=== PATIENT | female | born 1960 | race Caucasian/White ===

== ENCOUNTER 2020-05-18 07:51 | Emergency (ER) | payer MEDICARE, OTHER, SELFPAY ==
--- NOTE | ~2020-05-18 | XR_ITS ---
XR ankle LT min 3V DATE: 05/18/2020 08:39 INDICATION: Fall. Anterior and lateral pain. TECHNIQUE: 4 views COMPARISON: None FINDINGS: No fracture or dislocation of the ankle or disruption of the ankle mortise is detected. IMPRESSION: No fracture or dislocation Reviewed, dictated and finalized at location A. GRATION ARCHITECT IMPRESSION: No fracture or dislocation
--- NOTE | ~2020-05-18 | CT_ITS ---
EXAMINATION: CT brain wo con DATE: 05/18/2020 08:25 INDICATION: Fall. Patient struck forehead. TECHNIQUE: Computed tomography (CT) of the head was performed without intravenous contrast. The mA wa s adjusted according to patient size. Iterative reconstruction technique was employed. Exam dose: 60 5.33 mGy-cm total exam DLP. COMPARISON: 05/11/2016 CT brain FINDINGS: Chronic large left cerebellar hemispheric infarct. Bilateral carotid siphon internal carotid artery calcifications. No intracranial mass lesion or hemorrhage, midline shift or mass effect. No subdural or epidural terry joseph. No skull fracture or bone destruction. IMPRESSION: Chronic left cerebellar infarct Cerebral atherosclerosis No acute intracranial finding or skull fracture Reviewed, dictated and finalized at Location [facility]. Reviewed, dictated and finalized at location A. OLOGY AIDE
[2020-05-18 07:50] VITALS: BP 133/73; PULSE 54; RESP 20; TEMP 36.6; O2SAT 98
--- NOTE | 2020-05-18 08:35 | ED.LOWEXIN ---
HPI - Extremity Injury (Lower) General Chief Complaint: Extremity Injury, Lower Stated Complaint: ankle injury Time Seen by Provider: 05/18/20 07:51 History of Present Illness HPI Narrative: Patient is a 5-year-old female who presents to the ER with left ankle pain. Patient reports that her foot was numb when she got out of bed. When she tried to walk she lost her balance and twisted her ankle. She then fell and struck her head against wall. Unsure if she lost consciousness. She had pain/swelling of the ankle and pain and could not bear weight. She took one of her home Butler's prior to coming to the ER by EMS. EMS is splinted the affected extremity. No numbness or tingling. Patient takes Plavix. Related Data Home Medications Medication Instructions Recorded Confirmed albuterol sulfate 90 mcg/actuation See Rx Instructions .ROUTE .COMPLEX 09/02/19 12/17/19 aerosol inhaler alprazolam 2 mg tablet 2 mg PO TID 09/02/19 12/17/19 clopidogrel 75 mg tablet 75 mg PO DAILY 09/02/19 12/17/19 fluoxetine 20 mg capsule 20 mg PO DAILY 09/02/19 12/17/19 fluticasone propionate 50 2 spray NASAL DAILY 09/02/19 12/17/19 mcg/actuation nasal spray,suspension omeprazole 40 mg capsule,delayed 40 mg PO DAILY 09/02/19 12/17/19 release oxycodone-acetaminophen 10 mg-325 1 tablet PO Q6H PRN 09/02/19 12/17/19 mg tablet budesonide-formoterol HFA 160 2 puff INHALATION Q12H 12/14/19 12/17/19 mcg-4.5 mcg/actuation aerosol inhaler Allergies Allergy/AdvReac Type Severity Reaction Status Date / Time Penicillins Allergy Severe Anaphylactic Verified 08/02/19 13:21 Shock strawberry Allergy Severe Anaphylactic Verified 08/02/19 13:21 Shock Sulfa (Sulfonamide Allergy Severe Anaphylactic Verified 08/02/19 13:21 Antibiotics) Shock Cephalosporins Allergy Mild Vomiting Verified 08/02/19 13:21 nitrofurantoin Allergy Mild Hives Verified 05/18/20 07:58 povidone Allergy Mild SWELLING Verified 08/02/19 13:21 Iodinated Contrast Media Allergy Unknown Anaphylaxis Verified 05/18/20 07:58 povidone-iodine Allergy Unknown Anaphylaxis Verified 05/18/20 07:58 shellfish derived Allergy Unknown Anaphylaxis Verified 05/18/20 07:58 sulfanilamide Allergy Unknown Anaphylactic Verified 05/18/20 07:58 Shock Contrast Media Allergy Severe Anaphylactic Uncoded 08/02/19 13:21 Shock Cat Dander Allergy Mild Wheezing Uncoded 08/02/19 13:21 Dust Allergy Mild Wheezing Uncoded 08/02/19 13:21 Grass Allergy Mild Wheezing Uncoded 08/02/19 13:21 Molds and Smuts Allergy Mild Wheezing Uncoded 08/02/19 13:21 NITROFURANTOIN MACROCRYSTAL Allergy Mild Unknown Uncoded 05/18/20 07:58 Mushroom Allergy Unknown Unknown Uncoded 05/18/20 07:58 PHENYLOPROPONALMINE Allergy Unknown Unknown Uncoded 05/18/20 07:58 SHELLFISH Allergy Unknown Unknown Uncoded 05/18/20 07:58 SOAP Allergy Unknown Unknown Uncoded 05/18/20 07:58 Review of Systems Review of Systems: All systems reviewed & are unremarkable except as noted in HPI and below Constitutional: Constitutional: Denies chills, Denies fever(s) and Denies weakness Musculoskeletal: Musculoskeletal: Reports arthralgias and Reports joint swelling Neurologic: Denies headache(s), Denies focal weakness and Denies numbness PMFSH Past Medical History Medical History (Updated 05/18/20 @ 10:47 by Noble Roberts MD) CVA (cerebral vascular accident) Diabetes type 2, controlled Hyperlipidemia, unspecified Peripheral polyneuropathy Family History Family History Sibling Family history of thyroid disease Family history of diabetes mellitus in first degree relative Father Carcinoma of colon Social History Social History Smoking status: Never smoker Alcohol intake: never Exam Narrative: Exam Narrative: GENERAL: Well-appearing, obese, and in no acute distress. HEAD: Normocephalic, atraumatic. EYES: PERR
== END 2020-05-18 11:03 | disposition home or self-care (01) ==
PROVIDERS: Emergency Provider Emergency Medicine
DX: S93.402A Sprain of unspecified ligament of left ankle, initial encounter (principal); Z86.73 Personal history of transient ischemic attack (TIA), and cerebral infarction without residual deficits; E78.5 Hyperlipidemia, unspecified; E11.42 Type 2 diabetes mellitus with diabetic polyneuropathy; I67.2 Cerebral atherosclerosis; W18.39XA Other fall on same level, initial encounter; X50.1XXA Overexertion from prolonged static or awkward postures, initial encounter
CPT/HCPCS: 70450; 73610; 99284

== ENCOUNTER 2020-10-05 11:24 | Emergency (ER) | payer MEDICARE, OTHER, MEDICAID, SELFPAY ==
[2020-10-05] VITALS (7 sets, daily range): BP systolic 98–118; BP diastolic 62–86; PULSE 51–62; RESP 8–19; TEMP 36.7; O2SAT 94–99
--- NOTE | ~2020-10-05 | XR_ITS ---
EXAMINATION: XR chest 2V EXAM DATE: 10/05/2020 12:39 INDICATION: Cough, chest pain. TECHNIQUE: Frontal and lateral projections of the chest obtained and reviewed. Comparison is made to prior examination from 09/11/2017. FINDINGS: There is an oval density projecting over the mid spine on the lateral projection, most like ly a left laterally based endplate osteophyte. This finding has been indicated. No acute airspace dis ease. There are no pleural effusions. The cardiomediastinal silhouette is within normal limits. The re is no pneumothorax suspected. The bones and soft tissues are unremarkable. IMPRESSION: No acute cardiopulmonary findings. Oval density probably an osteophyte. Reviewed, dictated and finalized at location A. IMPRESSION: No acute cardiopulmonary findings. Oval density probably an osteoph yte.
--- NOTE | ~2020-10-05 | NM_ITS ---
EXAMINATION: NM pulmonary perfusion EXAM DATE: 10/05/2020 15:05 INDICATION: Chest pain, cough. History of both pulmonary embolism and contrast allergy. TECHNIQUE: A perfusion lung scan was performed. The patient was injected with 5.5 mCi technetium 99m MAA and imaged. Modified PIOPED 2 criteria used for interpretation of perfusion without ventilation study (recent chest x-ray instead for comparison). There is no prior study for comparison. FINDINGS: There is homogeneous tracer activity, perfusion to both lungs. Corresponding chest x-ray is normal. IMPRESSION: Normal perfusion scan. Reviewed, dictated and finalized at location A. IMPRESSION: Normal perfusion scan.
--- NOTE | 2020-10-05 11:29 | ECG_ITS ---
Measurements Intervals [place] Rate: 58 P: 41 RI: 128 QRS: 14 QRSD: 102 T: 22 QT: 401 QTc: 395 Interpretive Statements SINUS BRADYCARDIA BASELINE ARTIFACT- I, II, III, AVR, AVL,A VF, V1-V6 BORDERLINE ECG Electronically Signed On 10-05-2020 12:47:28 CDT by Chalo Hernandez D.O.
[2020-10-05 12:27] LABS: Basophils Absolute Auto 0.1 K/mm3 (0.0-0.1); Basophils Percent Auto 0.9 % (0.2-1.2); Eosinophils Absolute Auto 0.2 K/mm3 (0-0.3); Eosinophils Percent Auto 2.2 % (0-4.4); Hematocrit 39.7 % (37.0-47.0); Hemoglobin 12.8 g/dL (12.0-15.0); Immature Granulocyte Absolute 0.02 K/mm3 (0.00-0.031); Immature Granulocyte Percent A 0.3 % (0-0.5); Lymphocytes Absolute Auto 3.98 K/mm3 (0.9-3.2); Lymphocytes Percent Auto 51.1 % (18.3-44.2); Mean Corpuscular HGB Conc 32.2 g/dl (32-36); Mean Corpuscular Hemoglobin 28.3 pg (26-34); Mean Corpuscular Volume 87.8 fl (80-100); Mean Platelet Volume 11.7 fl (7.4-10.4); Monocytes Absolute Auto 0.5 K/mm3 (0.1-0.6); Monocytes Percent Auto 6.3 % (2.6-8.5); Neutrophils Absolute Auto 3.1 K/mm3 (1.3-6.7); Neutrophils Percent Auto 39.2 % (45.5-73.1); Platelet Count Result 224 k/mm3 (150-375); Red Blood Count 4.52 M/mm3 (4.2-5.4); Red Cell Distribution Width 12.8 % (11.5-14.5); White Blood Count 7.8 K/mm3 (4.5-10.0)
[2020-10-05 12:33] LABS: Anion Gap 4 mmol/L (8-16); Blood Urea Nitrogen 17 mg/dL (7-17); Calcium 8.4 mg/dL (8.4-10.2); Carbon Dioxide 30 mmol/L (22-30); Chloride 104 mmol/L (98-107); Estimated CRCL calculation 53 ml/min; Estimated Glomerular Filt Rate > 60; Glucose 111 mg/dL (65-105); Potassium 3.6 mmol/L (3.4-5.0); Sodium 138 mmol/L (137-145)
[2020-10-05 12:39] LABS: INR 0.9; Prothrombin Time 12.3 Seconds (11.1-14.7)
[2020-10-05 12:40] LABS: Partial Thromboplastin Time 26.3 SECONDS (22.3-36.8)
[2020-10-05 12:45] LABS: Troponin I < 0.012 ng/mL (0.000-0.034)
[2020-10-05] MEDS: ASPIRIN 81 MG CHEWABLE TABLET 324 MG PO (12:58)
--- NOTE | 2020-10-05 13:14 | ED.GENADULT ---
HPI - General Adult General Chief complaint: Chest Pain Stated complaint: headache, chest pain Time Seen by Provider: 10/05/20 12:16 Source: patient Mode of arrival: ambulatory Limitations: no limitations History of Present Illness HPI narrative: 59-year-old female Patient has a history of a cough and a frontal headache for the last 2 to 3 weeks and some CP when she moves around or breathes deeply Cough is nonproductive, she does not have a fever, and she had a negative rapid and a negative send out Covid test done this week elsewhere 2 days ago she started Flonase and doxycycline after an urgent care visit Patient says that today the urgent care called her back and said she should go to the ER to be checked due to reported problems with the [employer] Covid vaccination Patient received her vaccination August 28 Onset (ago): day(s) Related Data Home Medications Medication Instructions Recorded Confirmed budesonide-formoterol INHALATION 10/05/20 10/05/20 cholecalciferol (vitamin D3) 10/05/20 clopidogrel 10/05/20 doxycycline hyclate 10/05/20 epinephrine 10/05/20 fluoxetine mg 10/05/20 fluticasone propionate INTRANASAL 10/05/20 pregabalin 10/05/20 Allergies Allergy/AdvReac Type Severity Reaction Status Date / Time Penicillins Allergy Severe Anaphylactic Verified 10/05/20 12:27 Shock strawberry Allergy Severe Anaphylactic Verified 10/05/20 12:27 Shock Sulfa (Sulfonamide Allergy Severe Anaphylactic Verified 10/05/20 12:27 Antibiotics) Shock Cephalosporins Allergy Mild Vomiting Verified 10/05/20 12:27 nitrofurantoin Allergy Mild Hives Verified 10/05/20 12:27 povidone Allergy Mild SWELLING Verified 10/05/20 12:27 Iodinated Contrast Media Allergy Unknown Anaphylaxis Verified 10/05/20 12:27 povidone-iodine Allergy Unknown Anaphylaxis Verified 10/05/20 12:27 shellfish derived Allergy Unknown Anaphylaxis Verified 10/05/20 12:27 sulfamethoxazole Allergy Unknown hives Verified 10/05/20 12:27 [From ] sulfanilamide Allergy Unknown Anaphylactic Verified 10/05/20 12:27 Shock trimethoprim [From ] Allergy Unknown hives Verified 10/05/20 12:27 Contrast Media Allergy Severe Anaphylactic Uncoded 10/05/20 12:27 Shock Cat Dander Allergy Mild Wheezing Uncoded 10/05/20 12:27 Dust Allergy Mild Wheezing Uncoded 10/05/20 12:27 Grass Allergy Mild Wheezing Uncoded 10/05/20 12:27 Molds and Smuts Allergy Mild Wheezing Uncoded 10/05/20 12:27 NITROFURANTOIN MACROCRYSTAL Allergy Mild Unknown Uncoded 10/05/20 12:27 Mushroom Allergy Unknown Unknown Uncoded 10/05/20 12:27 PHENYLOPROPONALMINE Allergy Unknown Unknown Uncoded 10/05/20 12:27 SHELLFISH Allergy Unknown Unknown Uncoded 10/05/20 12:27 SOAP Allergy Unknown Unknown Uncoded 10/05/20 12:27 Review of Systems Review of Systems: All systems reviewed & are unremarkable except as noted in HPI and below Constitutional: Constitutional: Reports no additional constitutional complaints, Denies chills, Denies fever(s) and Denies headache(s) Eyes: Eyes: Reports no additional eye complaints and Denies change in vision ENT: Denies headache(s), Reports nasal congestion and Denies sore throat Comments: Sinus pain Cardiovascular: Cardiovascular: Reports chest pain and Denies dyspnea Respiratory: Respiratory: Reports cough, Denies dyspnea and Denies wheezing Gastrointestinal: Gastrointestinal: Denies diarrhea and Denies vomiting Genitourinary: Genitourinary: Denies urinary frequency and Denies dysuria Musculoskeletal: Musculoskeletal: Denies deformity, Denies arthralgias, Denies joint swelling and Denies numbness Integumentary/Breasts: Skin/Breast: Denies rash and Denies wounds Neurologic: Reports headache(s), Denies focal weakness and Denies numbness Psychiatric: Psychiatric: Reports no additional psychiatric complaints Endocrine: Endocrine: Reports no additional endocrine complaints Hematologic/Lymphatic: Hematologic/Lymphatic: Reports no add
[2020-10-05 13:18] LABS: D Dimer 1.18 ug/mL (<0.48)
[2020-10-05 15:45] LABS: Troponin I < 0.012 ng/mL (0.000-0.034)
== END 2020-10-05 16:42 | disposition home or self-care (01) ==
PROVIDERS: General Practice; Emergency Provider Emergency Medicine; PCP Internal Medicine
DX: J06.9 Acute upper respiratory infection, unspecified (principal); R07.89 Other chest pain; J45.909 Unspecified asthma, uncomplicated; E11.42 Type 2 diabetes mellitus with diabetic polyneuropathy; M79.7 Fibromyalgia; K21.9 Gastro-esophageal reflux disease without esophagitis; M19.90 Unspecified osteoarthritis, unspecified site; Z86.718 Personal history of other venous thrombosis and embolism; Z86.711 Personal history of pulmonary embolism; G47.30 Sleep apnea, unspecified; K58.9 Irritable bowel syndrome, unspecified; M81.0 Age-related osteoporosis without current pathological fracture; Z87.440 Personal history of urinary (tract) infections; Z86.73 Personal history of transient ischemic attack (TIA), and cerebral infarction without residual deficits; R00.1 Bradycardia, unspecified
CPT/HCPCS: 36415; 71046; 78580; 80048; 84484; 85025; 85380; 85610; 85730; 93005; 99284; A9270; A9540

== ENCOUNTER 2021-04-21 15:42 | Emergency (ER) | payer MEDICARE, OTHER, MEDICAID, SELFPAY ==
[2021-04-21 16:04] VITALS: BP 104/58; PULSE 71; RESP 18; TEMP 37.1; O2SAT 98
--- NOTE | 2021-04-21 16:52 | ED.FEMALEGU ---
HPI - Female Genitourinary General Chief complaint: Urogenital-Female Stated complaint: UTI Time Seen by Provider: 04/21/21 16:38 Source: patient and RN notes reviewed Mode of arrival: ambulatory Limitations: no limitations History of Present Illness HPI Narrative: Patient presents today complaining of headache, lower abdominal cramping, dysuria, hematuria, nausea, chills. Symptoms began 1 week ago. patient has history of frequent UTIs, neurogenic bladder. She has tried no [id number] treatment prior to arrival. She has multiple antibiotic allergies and has had to have PICC line antibiotics in the past. MD elicited complaint: dysuria Related Data Home Medications Medication Instructions Recorded Confirmed budesonide-formoterol INHALATION 10/05/20 12/27/20 cholecalciferol (vitamin D3) 10/05/20 clopidogrel 10/05/20 12/27/20 epinephrine 10/05/20 fluoxetine mg 10/05/20 fluticasone propionate INTRANASAL 10/05/20 pregabalin 10/05/20 fluoxetine 20 mg capsule 20 mg PO DAILY 12/27/20 12/27/20 omeprazole 40 mg capsule,delayed 40 mg PO DAILY 12/27/20 12/27/20 release oxycodone-acetaminophen 10 mg-325 1 tablet PO Q6H PRN 12/27/20 12/27/20 mg tablet pregabalin 100 mg capsule 100 mg PO TID 12/27/20 12/27/20 Allergies Allergy/AdvReac Type Severity Reaction Status Date / Time Penicillins Allergy Severe Anaphylactic Verified 12/27/20 14:49 Shock strawberry Allergy Severe Anaphylactic Verified 12/27/20 14:49 Shock Sulfa (Sulfonamide Allergy Severe Anaphylactic Verified 12/27/20 14:49 Antibiotics) Shock Cephalosporins Allergy Mild Vomiting Verified 12/27/20 14:49 nitrofurantoin Allergy Mild Hives Verified 12/27/20 14:49 povidone Allergy Mild SWELLING Verified 12/27/20 14:49 Iodinated Contrast Media Allergy Unknown Anaphylaxis Verified 12/27/20 14:49 povidone-iodine Allergy Unknown Anaphylaxis Verified 12/27/20 14:49 shellfish derived Allergy Unknown Anaphylaxis Verified 12/27/20 14:49 sulfamethoxazole Allergy Unknown hives Verified 12/27/20 14:49 [From ] sulfanilamide Allergy Unknown Anaphylactic Verified 12/27/20 14:49 Shock trimethoprim [From ] Allergy Unknown hives Verified 12/27/20 14:49 Contrast Media Allergy Severe Anaphylactic Uncoded 12/27/20 14:49 Shock Cat Dander Allergy Mild Wheezing Uncoded 12/27/20 14:49 Dust Allergy Mild Wheezing Uncoded 12/27/20 14:49 Grass Allergy Mild Wheezing Uncoded 12/27/20 14:49 Molds and Smuts Allergy Mild Wheezing Uncoded 12/27/20 14:49 NITROFURANTOIN MACROCRYSTAL Allergy Mild Unknown Uncoded 12/27/20 14:49 Mushroom Allergy Unknown Unknown Uncoded 12/27/20 14:49 PHENYLOPROPONALMINE Allergy Unknown Unknown Uncoded 12/27/20 14:49 SHELLFISH Allergy Unknown Unknown Uncoded 12/27/20 14:49 SOAP Allergy Unknown Unknown Uncoded 12/27/20 14:49 Review of Systems Review of Systems: CONSTITUTIONAL: Denies body aches, fever, or sweats.+ Chills EYES: Denies visual changes, redness, or discharge. ENT: Denies rhinorrhea, congestion, sore throat, or otalgia. CARDIOVASCULAR: Denies chest pain, palpitations, or edema. RESPIRATORY: Denies cough or dyspnea. GASTROINTESTINAL: Denies abdominal pain, vomiting, or diarrhea.+ Lower abdominal cramping, nausea GENITOURINARY: + Dysuria, hematuria. SKIN: Denies rash, itching, or wounds. MUSCULOSKELETAL: Denies back pain, joint pain, or myalgia. NEUROLOGIC: Denies numbness, tingling, or weakness.+ Headache PSYCH: Denies depression or anxiety. [facility] Past Medical History Medical History (Updated 04/21/21 @ 17:03 by Gwen Ortiz, [facility], ) Ankle sprain Arthritis Asthma Claustrophobia Constipation Coughing CVA (cerebral vascular accident) Depression Diabetes type 2, controlled Eczema Fibromyalgia GERD (gastroesophageal reflux disease) History of DVT (deep vein thrombosis) History of pulmonary embolism History of sleep apnea Hyperlipidemia, unspecified IBS (irritable bowel syndrome) Left ankle pain L
== END 2021-04-21 17:50 | disposition home or self-care (01) ==
PROVIDERS: Emergency Provider Nurse Practitioner
DX: N39.0 Urinary tract infection, site not specified (principal); M19.90 Unspecified osteoarthritis, unspecified site; J45.909 Unspecified asthma, uncomplicated; F40.240 Claustrophobia; Z86.73 Personal history of transient ischemic attack (TIA), and cerebral infarction without residual deficits; F32.A Depression, unspecified; M79.7 Fibromyalgia; K21.9 Gastro-esophageal reflux disease without esophagitis; Z86.718 Personal history of other venous thrombosis and embolism; Z86.711 Personal history of pulmonary embolism; G47.30 Sleep apnea, unspecified; M81.0 Age-related osteoporosis without current pathological fracture; E11.42 Type 2 diabetes mellitus with diabetic polyneuropathy
CPT/HCPCS: 81003; 87077; 87086; 87186; 99213; G0463

== ENCOUNTER 2022-01-27 08:00 | Emergency (ER) | payer MEDICARE, OTHER, MEDICAID, SELFPAY ==
[2022-01-27] VITALS (14 sets, daily range): BP systolic 93–117; BP diastolic 52–91; PULSE 53–66; RESP 9–21; TEMP 36.2; O2SAT 100
--- NOTE | ~2022-01-27 | XR_ITS ---
XR chest 2V DATE: 01/27/2022 08:33 INDICATION: Weakness TECHNIQUE: AP and lateral views COMPARISON: 10/05/2020 PA and lateral views FINDINGS: Heart size is within normal limits. No pulmonary infiltrate or consolidation, pleural effus ion or pulmonary vascular congestion or pneumothorax. Status post lower anterior cervical spine surgical fusion. Osteopenia. IMPRESSION: No active cardiopulmonary disease Reviewed, dictated and finalized at location A.
--- NOTE | 2022-01-27 08:08 | ECG_ITS ---
Measurements Intervals [place] Rate: 51 P: 55 WA: 145 QRS: 27 QRSD: 93 T: 42 QT: 382 QTc: 355 Interpretive Statements SINUS BRADYCARDIA OTHERWISE WITHIN NORMAL LIMITS COMPARED TO ECG 10/05/2020 11:49:36 NO SIGNIFICANT CHANGES Electronically Signed On 01-27-2022 8:28:06 CDT by Joselito Khan M.D.
[2022-01-27 08:47] LABS: Basophils Percent Auto 0.7 % (0.2-1.2); Eosinophils Absolute Auto 0.1 K/mm3 (0-0.3); Eosinophils Percent Auto 1.9 % (0-4.4); Hematocrit 37.1 % (37.0-47.0); Hemoglobin 11.1 g/dL (12.0-15.0); Immature Granulocyte Absolute 0.02 K/mm3 (0.00-0.031); Immature Granulocyte Percent A 0.3 % (0-0.5); Immature Platelet Fraction Pct 9.8 % (0.9-11.2); Lymphocytes Absolute Auto 1.79 K/mm3 (0.9-3.2); Lymphocytes Percent Auto 30.7 % (18.3-44.2); Mean Corpuscular HGB Conc 29.9 g/dl (32-36); Mean Corpuscular Hemoglobin 27.6 pg (26-34); Mean Corpuscular Volume 92.3 fl (80-100); Mean Platelet Volume 11.8 fl (7.4-10.4); Monocytes Absolute Auto 0.5 K/mm3 (0.1-0.6); Monocytes Percent Auto 7.7 % (2.6-8.5); Neutrophils Absolute Auto 3.4 K/mm3 (1.3-6.7); Neutrophils Percent Auto 58.7 % (45.5-73.1); Platelet Count Result 205 k/mm3 (150-375); Red Blood Count 4.02 M/mm3 (4.2-5.4); Red Cell Distribution Width 13.2 % (11.5-14.5); White Blood Count 5.8 K/mm3 (4.5-10.0)
[2022-01-27 09:03] LABS: Alanine Aminotransferase 19 U/L (6-35); Albumin Level 3.9 g/dL (3.5-5.1); Alkaline Phosphatase 70 U/L (38-126); Anion Gap 7 mmol/L (8-16); Aspartate Amino Transferase 26 U/L (14-36); Bilirubin,Total 0.4 mg/dL (0.2-1.3); Blood Urea Nitrogen 12 mg/dL (7-17); Calcium 8.9 mg/dL (8.4-10.2); Carbon Dioxide 29 mmol/L (22-30); Chloride 106 mmol/L (98-107); Estimated CRCL calculation 52 ml/min; Estimated Glomerular Filt Rate 56; Glucose 101 mg/dL (65-110); Potassium 4.2 mmol/L (3.4-5.0); Sodium 142 mmol/L (137-145)
[2022-01-27 09:13] LABS: Appearance Urine Clear (Clear); Bilirubin Urine Negative (Negative); Blood Urine Negative (Negative); Color Urine Yellow (Yellow); Glucose Urine UA Negative (Negative); Ketones Urine Negative (Negative); Leukocyte Esterase Ur Negative LEU/UL (Negative); Nitrate Urine Negative (Negative); Protein Urine Negative (Negative); Specific Grav Ur 1.015 (1.001-1.035); Urobilinogen Urine 0.2 mg/dL (<2.0); pH Urine 7.5 (5.0-9.0)
[2022-01-27 09:18] LABS: Add Urine Microscopic? NO
[2022-01-27 09:21] LABS: Ovalocytes 1+ (NORMAL); Platelet Estimate Adequate (Adequate)
--- NOTE | 2022-01-27 10:08 | ED.GENADULT ---
HPI - General Adult General Chief complaint: Weakness Stated complaint: weakness Time Seen by Provider: 01/27/22 08:17 Source: patient and EMS Mode of arrival: EMS Limitations: no limitations History of Present Illness HPI narrative: 61 years old white female came to the emergency room by ambulance from home because of general weakness. Patient is a status post cervical fusion surgery at [facility], got discharged 2 days ago. 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 Patient lives with 2 handicapped sister. She denies any fever, chills, nausea, vomiting, chest pain, shortness of breath, headache, back pain or neck pain. Related Data Home Medications Medication Instructions Recorded Confirmed budesonide-formoterol HFA 160 inhalation 10/05/20 12/17/21 mcg-4.5 mcg/actuation aerosol inhaler cholecalciferol (vitamin D3) 1,250 10/05/20 12/17/21 mcg (50,000 unit) capsule clopidogrel 75 mg tablet 10/05/20 12/17/21 epinephrine 0.3 mg/0.3 mL 10/05/20 12/17/21 injection, auto-injector fluoxetine 20 mg capsule (Prozac) 20 mg PO DAILY 12/27/20 12/17/21 omeprazole 40 mg capsule,delayed 40 mg PO DAILY 12/27/20 12/17/21 release oxycodone-acetaminophen 10 mg-325 1 tablet PO Q6H PRN Pain 12/27/20 12/17/21 mg tablet (Percocet) pregabalin 100 mg capsule (Lyrica) 100 mg PO TID 12/27/20 12/17/21 Migraine medication PO 12/17/21 12/17/21 alprazolam 2 mg tablet (Xanax) 1 mg PO QHS 12/17/21 12/17/21 fluticasone propionate 50 intranasal PRN 12/17/21 12/17/21 mcg/actuation nasal spray,suspension cholecalciferol (vitamin D3) 1,250 50,000 [id number] 01/27/22 mcg (50,000 unit) capsule oxybutynin chloride 5 mg tablet 5 mg DAILY 01/27/22 Allergies Allergy/AdvReac Type Severity Reaction Status Date / Time Penicillins Allergy Severe Anaphylactic Verified 01/27/22 08:08 Shock strawberry Allergy Severe Anaphylactic Verified 01/27/22 08:08 Shock Sulfa (Sulfonamide Allergy Severe Anaphylactic Verified 01/27/22 08:08 Antibiotics) Shock Cephalosporins Allergy Mild Vomiting Verified 01/27/22 08:08 nitrofurantoin Allergy Mild Hives Verified 01/27/22 08:08 povidone Allergy Mild SWELLING Verified 01/27/22 08:08 Iodinated Contrast Media Allergy Unknown Anaphylaxis Verified 01/27/22 08:08 povidone-iodine Allergy Unknown Anaphylaxis Verified 01/27/22 08:08 shellfish derived Allergy Unknown Anaphylaxis Verified 01/27/22 08:08 sulfamethoxazole Allergy Unknown hives Verified 01/27/22 08:08 [From Septra] sulfanilamide Allergy Unknown Anaphylactic Verified 01/27/22 08:08 Shock sumatriptan [From Imitrex] Allergy Unknown Gastrointestinal Verified 01/27/22 08:08 Upset trimethoprim [From Septra] Allergy Unknown hives Verified 01/27/22 08:08 Contrast Media Allergy Severe Anaphylactic Uncoded 01/27/22 08:08 Shock Cat Dander Allergy Mild Wheezing Uncoded 01/27/22 08:08 Dust Allergy Mild Wheezing Uncoded 01/27/22 08:08 Grass Allergy Mild Wheezing Uncoded 01/27/22 08:08 Molds and Smuts Allergy Mild Wheezing Uncoded 01/27/22 08:08 NITROFURANTOIN MACROCRYSTAL Allergy Mild Unknown Uncoded 01/27/22 08:08 Mushroom Allergy Unknown Unknown Uncoded 01/27/22 08:08 PHENYLOPROPONALMINE Allergy Unknown Unknown Uncoded 01/27/22 08:08 SHELLFISH Allergy Unknown Unknown Uncoded 01/27/22 08:08 SOAP Allergy Unknown Unknown Uncoded 01/27/22 08:08 Review of Systems Review of Systems: All systems reviewed & are unremarkable except as noted in HPI and below PMFSH Past Medical History Medical History Ankle sprain Anxiety Arthritis Asthma BPPV (benign paroxysmal positional vertigo) Bulging disc cervical spine, ruptured and collapsed Claustrophobia Constipation CVA (cerebral vascular accident) Depression Eczema Fibromyalgia GERD (gastroesophageal reflux
== END 2022-01-27 12:19 | disposition short-term general hospital (02) ==
PROVIDERS: Emergency Provider Emergency Medicine
DX: R53.1 Weakness (principal); R26.2 Difficulty in walking, not elsewhere classified; Z98.1 Arthrodesis status; E11.42 Type 2 diabetes mellitus with diabetic polyneuropathy; F32.A Depression, unspecified; M19.90 Unspecified osteoarthritis, unspecified site; M79.7 Fibromyalgia; K21.9 Gastro-esophageal reflux disease without esophagitis; N31.9 Neuromuscular dysfunction of bladder, unspecified; K58.9 Irritable bowel syndrome, unspecified; J45.909 Unspecified asthma, uncomplicated; M81.0 Age-related osteoporosis without current pathological fracture; G47.30 Sleep apnea, unspecified; F41.9 Anxiety disorder, unspecified; Z86.73 Personal history of transient ischemic attack (TIA), and cerebral infarction without residual deficits; Z86.718 Personal history of other venous thrombosis and embolism; Z86.711 Personal history of pulmonary embolism; Z90.710 Acquired absence of both cervix and uterus; R00.1 Bradycardia, unspecified
CPT/HCPCS: 36415; 51701; 71046; 80053; 81003; 85025; 85055; 93005; 99285

== ENCOUNTER 2022-02-10 16:15 | Emergency (ER) | payer MEDICARE, OTHER, MEDICAID, SELFPAY ==
[2022-02-10] VITALS (10 sets, daily range): BP systolic 115–140; BP diastolic 63–71; PULSE 65; RESP 16; TEMP 36.4; O2SAT 97–100
--- NOTE | ~2022-02-10 | XR_ITS ---
EXAM: XR elbow RT min 3V DATE: 02/10/2022 17:36 HISTORY: elbow injury s/p fall, PAIN WITH ROTATION . COMPARISON: None available. FINDINGS: Decreased mineralization. No fracture or dislocation. No lytic or blastic lesion. Joint sp aces are maintained. No erosion or periosteal change. Soft tissues within normal limits. IMPRESSION: No acute osseous finding in the right elbow. Reviewed, dictated and finalized at location K.
--- NOTE | ~2022-02-10 | XR_ITS ---
EXAM: XR shoulder RT min 2V DATE: 02/10/2022 17:36 HISTORY: shoulder pain s/p fall injury, PAIN WITH ROTATION . COMPARISON: 04/22/2014. FINDINGS: Decreased mineralization. No fracture or dislocation. No lytic or blastic lesion. Moderate AC joint hypertrophy. Superior humeral head migration as can be seen with rotator cuff pathology. Mi ld glenohumeral osteoarthritis. Lower cervical fusion hardware. No erosion or periosteal change. Soft tissues within normal limits. IMPRESSION: No acute osseous finding in the right shoulder. Reviewed, dictated and finalized at location K.
--- NOTE | ~2022-02-10 | CT_ITS ---
EXAMINATION: CT cervical spine wo con DATE: 02/10/2022 16:47 INDICATION: fall on plavix TECHNIQUE: Computed tomography (CT) of the cervical spine was performed without intravenous contrast. Automated exposure control and iterative reconstruction technique were employed. The dose-length pro duct was 395.36 mGy-cm. COMPARISON: None FINDINGS: Vertebral Body Alignment: Intact. Craniocervical and atlantoaxial alignment: Mild degenerative change. Alignment intact. Osseous structures/fracture: No evidence of a lytic or blastic process in the visualized spine. No e vidence of acute fracture. ACDF at C6-7, with uncomplicated appearing hardware and stable interbody b one plug. Cervical soft tissues: The paraspinal soft tissues planes are maintained. Degenerative changes: Severe bilateral neural foraminal narrowing at C5-6. Posterior osteophytes at C 6-7 cause moderate-severe central canal stenosis. IMPRESSION: No acute fracture or traumatic malalignment in the cervical spine. Reviewed, dictated and finalized at location K.
--- NOTE | ~2022-02-10 | XR_ITS ---
EXAM: XR wrist RT min 3V DATE: 02/10/2022 17:37 HISTORY: wrist pain s/p fall, PAIN WITH ROTATION . COMPARISON: None available. FINDINGS: Decreased mineralization. No fracture or dislocation. No lytic or blastic lesion. Mild sca ttered degenerative change. No erosion or periosteal change. Soft tissues within normal limits. IMPRESSION: No acute osseous finding in the right wrist. Reviewed, dictated and finalized at location K.
--- NOTE | ~2022-02-10 | XR_ITS ---
EXAMINATION: XR chest 2V Exam Date/Time: 02/10/2022 17:25 CDT HISTORY: weakness, multiple falls, HX CVA Comparison: 01/27/2022. RESULT: Lines, tubes, and devices: Partially visualized lower cervical fusion hardware. Lungs and pleura: Clear. Cardiomediastinal silhouette: Stable. Other: No acute osseous or upper abdominal finding. IMPRESSION: No acute cardiopulmonary process. Reviewed, dictated and finalized at location K.
--- NOTE | ~2022-02-10 | CT_ITS ---
EXAMINATION: CT brain wo con DATE: 02/10/2022 16:47 INDICATION: fall on plavix . TECHNIQUE: Computed tomography (CT) of the head was performed without intravenous contrast. The mA wa s adjusted according to patient size. Iterative reconstruction technique was employed. The dose-lengt h product was 605.33 mGy-cm. COMPARISON: 05/18/2020 FINDINGS: No acute intracranial hemorrhage or extra-axial fluid collection. No hydrocephalus, mass, or herniation. No acute ischemic infarct. Unremarkable dural venous sinus attenuation. No acute osseous abnormality. The aerated spaces are clear. Old left cerebellar infarct. Atherosclerotic intracranial calcifications. IMPRESSION: No acute intracranial process. Reviewed, dictated and finalized at location K.
--- NOTE | 2022-02-10 17:13 | ED.FALL ---
HPI - Fall General Chief Complaint: Fall Stated Complaint: Head injury, nausea Time Seen by Provider: 02/10/22 16:53 History of Present Illness HPI Narrative: 61-year-old female history of a recent anterior cervical fusion at [facility] presents to the emergency room for injuries following a fall. Patient states she was leaving her bedroom walking to the living room when she fell striking the back of her head and neck, as well as her right upper extremity when she attempted to break her fall. Patient is unsure if it was a mechanical fall from a standing position or if it was related to weakness. Patient admits to multiple falls since her cervical fusion surgery 3 weeks ago. Patient denies headache or altered mental status. Denies LOC. Patient denies chest pain shortness of breath. Related Data Home Medications Medication Instructions Recorded Confirmed budesonide-formoterol HFA 160 inhalation 10/05/20 12/17/21 mcg-4.5 mcg/actuation aerosol inhaler cholecalciferol (vitamin D3) 1,250 10/05/20 12/17/21 mcg (50,000 unit) capsule clopidogrel 75 mg tablet 10/05/20 12/17/21 epinephrine 0.3 mg/0.3 mL 10/05/20 12/17/21 injection, auto-injector fluoxetine 20 mg capsule (Prozac) 20 mg PO DAILY 12/27/20 12/17/21 omeprazole 40 mg capsule,delayed 40 mg PO DAILY 12/27/20 12/17/21 release oxycodone-acetaminophen 10 mg-325 1 tablet PO Q6H PRN Pain 12/27/20 12/17/21 mg tablet (Percocet) pregabalin 100 mg capsule (Lyrica) 100 mg PO TID 12/27/20 12/17/21 Migraine medication PO 12/17/21 12/17/21 alprazolam 2 mg tablet (Xanax) 1 mg PO QHS 12/17/21 12/17/21 fluticasone propionate 50 intranasal PRN 12/17/21 12/17/21 mcg/actuation nasal spray,suspension cholecalciferol (vitamin D3) 1,250 50,000 Q6PORFG 01/27/22 mcg (50,000 unit) capsule oxybutynin chloride 5 mg tablet 5 mg DAILY 01/27/22 Allergies Allergy/AdvReac Type Severity Reaction Status Date / Time Penicillins Allergy Severe Anaphylactic Verified 01/27/22 08:08 Shock strawberry Allergy Severe Anaphylactic Verified 01/27/22 08:08 Shock Sulfa (Sulfonamide Allergy Severe Anaphylactic Verified 01/27/22 08:08 Antibiotics) Shock Cephalosporins Allergy Mild Vomiting Verified 01/27/22 08:08 nitrofurantoin Allergy Mild Hives Verified 01/27/22 08:08 povidone Allergy Mild SWELLING Verified 01/27/22 08:08 Iodinated Contrast Media Allergy Unknown Anaphylaxis Verified 01/27/22 08:08 povidone-iodine Allergy Unknown Anaphylaxis Verified 01/27/22 08:08 shellfish derived Allergy Unknown Anaphylaxis Verified 01/27/22 08:08 sulfamethoxazole Allergy Unknown hives Verified 01/27/22 08:08 [From Septra] sulfanilamide Allergy Unknown Anaphylactic Verified 01/27/22 08:08 Shock sumatriptan [From Imitrex] Allergy Unknown Gastrointestinal Verified 01/27/22 08:08 Upset trimethoprim [From Septra] Allergy Unknown hives Verified 01/27/22 08:08 Contrast Media Allergy Severe Anaphylactic Uncoded 01/27/22 08:08 Shock Cat Dander Allergy Mild Wheezing Uncoded 01/27/22 08:08 Dust Allergy Mild Wheezing Uncoded 01/27/22 08:08 Grass Allergy Mild Wheezing Uncoded 01/27/22 08:08 Molds and Smuts Allergy Mild Wheezing Uncoded 01/27/22 08:08 NITROFURANTOIN MACROCRYSTAL Allergy Mild Unknown Uncoded 01/27/22 08:08 Mushroom Allergy Unknown Unknown Uncoded 01/27/22 08:08 PHENYLOPROPONALMINE Allergy Unknown Unknown Uncoded 01/27/22 08:08 SHELLFISH Allergy Unknown Unknown Uncoded 01/27/22 08:08 SOAP Allergy Unknown Unknown Uncoded 01/27/22 08:08 Review of Systems Review of Systems: CONSTITUTIONAL: Denies fever, chills, or sweats. EYES: Denies visual changes, redness, or discharge. ENT: Denies rhinorrhea, congestion, sore throat, or otalgia. CARDIOVASCULAR: Denies chest pain, palpitations, or edema. RESPIRATORY: Denies cough or dyspnea. GASTROINTESTINAL: Denies abdominal pain, nausea, vomiting, or diarrhea. GENITOURINARY: Denies dysuria or hematuria. SKIN: Denies rash or
--- NOTE | 2022-02-10 17:14 | ECG_ITS ---
Measurements Intervals [place] Rate: 60 P: 41 MO: 132 QRS: 17 QRSD: 98 T: 44 QT: 404 QTc: 404 Interpretive Statements SINUS RHYTHM NONSPECIFIC T-WAVE ABNORMALITY BORDERLINE ECG COMPARED TO ECG 01/27/2022 08:03:02 HEART RATE HAS INCREASED Electronically Signed On 02-11-2022 16:12:23 CDT by Francisco Rivera M.D.
[2022-02-10 18:09] LABS: Basophils Absolute Auto 0.1 K/mm3 (0.0-0.1); Basophils Percent Auto 0.7 % (0.2-1.2); Eosinophils Absolute Auto 0.1 K/mm3 (0-0.3); Eosinophils Percent Auto 1.1 % (0-4.4); Hematocrit 38.2 % (37.0-47.0); Hemoglobin 12.2 g/dL (12.0-15.0); Immature Granulocyte Absolute 0.02 K/mm3 (0.00-0.031); Immature Granulocyte Percent A 0.3 % (0-0.5); Lymphocytes Absolute Auto 1.56 K/mm3 (0.9-3.2); Lymphocytes Percent Auto 21.2 % (18.3-44.2); Mean Corpuscular HGB Conc 31.9 g/dl (32-36); Mean Corpuscular Hemoglobin 28.1 pg (26-34); Mean Platelet Volume 11.8 fl (7.4-10.4); Monocytes Absolute Auto 0.5 K/mm3 (0.1-0.6); Monocytes Percent Auto 6.2 % (2.6-8.5); Neutrophils Absolute Auto 5.2 K/mm3 (1.3-6.7); Neutrophils Percent Auto 70.5 % (45.5-73.1); Platelet Count Result 265 k/mm3 (150-375); Red Blood Count 4.34 M/mm3 (4.2-5.4); Red Cell Distribution Width 13.1 % (11.5-14.5); White Blood Count 7.4 K/mm3 (4.5-10.0)
[2022-02-10 18:14] LABS: Appearance Urine Slightly Cloudy (Clear); Bilirubin Urine Negative (Negative); Color Urine Yellow (Yellow); Glucose Urine UA Negative (Negative); Ketones Urine Negative (Negative); Leukocyte Esterase Ur 3+ LEU/UL (Negative); Nitrate Urine Negative (Negative); Protein Urine Negative (Negative); Specific Grav Ur 1.015 (1.001-1.035); Urobilinogen Urine 0.2 mg/dL (<2.0); pH Urine 6.5 (5.0-9.0)
[2022-02-10 18:21] LABS: Add Urine Microscopic? YES; Blood Urine Trace-Intact (Negative)
[2022-02-10 18:22] LABS: Bacteria Urine Trace /hpf; Mucus Urine Rare /lpf; WBC Urine >75 /hpf
[2022-02-10 18:28] LABS: Alanine Aminotransferase 18 U/L (6-35); Albumin Level 4.2 g/dL (3.5-5.1); Alkaline Phosphatase 83 U/L (38-126); Anion Gap 10 mmol/L (8-16); Aspartate Amino Transferase 28 U/L (14-36); Bilirubin,Total 0.3 mg/dL (0.2-1.3); Blood Urea Nitrogen 18 mg/dL (7-17); Calcium 9.4 mg/dL (8.4-10.2); Carbon Dioxide 23 mmol/L (22-30); Chloride 107 mmol/L (98-107); Estimated CRCL calculation 56 ml/min; Estimated Glomerular Filt Rate > 60; Glucose 139 mg/dL (65-110); Lipase 110 U/L (23-300); Potassium 3.6 mmol/L (3.4-5.0); Sodium 140 mmol/L (137-145)
[2022-02-10 18:40] LABS: Troponin I < 0.012 ng/mL (0.000-0.034)
== END 2022-02-10 19:15 | disposition home or self-care (01) ==
PROVIDERS: Emergency Provider Nurse Practitioner Family
DX: S40.011A Contusion of right shoulder, initial encounter (principal); S50.01XA Contusion of right elbow, initial encounter; S60.211A Contusion of right wrist, initial encounter; S09.90XA Unspecified injury of head, initial encounter; N39.0 Urinary tract infection, site not specified; J45.909 Unspecified asthma, uncomplicated; G47.30 Sleep apnea, unspecified; N31.9 Neuromuscular dysfunction of bladder, unspecified; M79.7 Fibromyalgia; M81.0 Age-related osteoporosis without current pathological fracture; M19.90 Unspecified osteoarthritis, unspecified site; K21.9 Gastro-esophageal reflux disease without esophagitis; K58.9 Irritable bowel syndrome, unspecified; F41.9 Anxiety disorder, unspecified; E11.42 Type 2 diabetes mellitus with diabetic polyneuropathy; Z86.73 Personal history of transient ischemic attack (TIA), and cerebral infarction without residual deficits; Z86.718 Personal history of other venous thrombosis and embolism; Z86.711 Personal history of pulmonary embolism; Z98.1 Arthrodesis status; Z90.710 Acquired absence of both cervix and uterus; W18.30XA Fall on same level, unspecified, initial encounter; R94.31 Abnormal electrocardiogram [ECG] [EKG]
CPT/HCPCS: 36415; 70450; 71046; 72125; 73030; 73080; 73110; 80053; 81001; 83690; 84484; 85025; 87077; 87086; 87186; 93005; 99284

== ENCOUNTER 2023-04-03 10:28 | Outpatient (CLI) | payer MEDICARE, OTHER, MEDICAID, SELFPAY ==
[2023-04-03 13:00] LABS: Alanine Aminotransferase 15 U/L (6-35); Alkaline Phosphatase 108 U/L (38-126); Anion Gap 4 mmol/L (8-16); Aspartate Amino Transferase 61 U/L (14-36); Bilirubin,Total 0.4 mg/dL (0.2-1.3); Blood Urea Nitrogen 17 mg/dL (7-17); Calcium 8.7 mg/dL (8.4-10.2); Carbon Dioxide 27 mmol/L (22-30); Chloride 108 mmol/L (98-107); Cholesterol 209 mg/dL (0-200); Estimated Glomerular Filt Rate > 60; Glucose 101 mg/dL (65-110); HDL Direct 47 mg/dL; Potassium 4.1 mmol/L (3.4-5.0); Sodium 139 mmol/L (137-145); Triglycerides 138 mg/dL (<150)
[2023-04-03 13:17] LABS: Free T4 Free Thyroxine 0.79 ng/mL (0.78-2.19); Vitamin D 25 Hydroxy 45.6 ng/mL
[2023-04-03 13:27] LABS: Creatinine Urine 154.7 mg/dL
[2023-04-03 13:32] LABS: Microalbumin Urine Random 10.8 mg/L (0-16.7)
[2023-04-03 13:37] LABS: LDL Cholesterol Direct 97 mg/dL
== END 2023-04-03 10:29 | disposition home or self-care (01) ==
LOC: ANHWCLAB 10:31
PROVIDERS: PCP Obstetrics & Gynecology Gynecology; Visit Provider Nurse Practitioner Family
DX: N95.1 Menopausal and female climacteric states (principal); E11.9 Type 2 diabetes mellitus without complications; E55.9 Vitamin D deficiency, unspecified; E78.5 Hyperlipidemia, unspecified; G62.9 Polyneuropathy, unspecified
CPT/HCPCS: 36415; 80053; 80061; 82043; 82306; 82607; 84439; 84443

== ENCOUNTER 2023-11-19 13:55 | Outpatient (CLI) | payer MEDICARE, SELFPAY ==
--- NOTE | ~2023-11-19 | MM_ITS ---
EXAMINATION: MM screening maria isabel BI w gaby HISTORY: Screening TECHNIQUE: Craniocaudal and mediolateral oblique 3-D tomosynthesis images were obtained and synthetic 2-D images were generated. CAD analysis was submitted and interpreted. COMPARISON: 04/22/2014 BREAST PARENCHYMAL COMPOSITION: There are scattered areas of fibroglandular density. FINDINGS: There is no evidence of suspicious mass, calcification, or architectural distortion to sugg est malignancy in either breast. There has been no suspicious interval change. IMPRESSION: 1. No mammographic evidence of malignancy. 2. Recommend routine screening mammography in one year. BI-RADS Category 1: Negative Reviewed, dictated and finalized at location B.
--- NOTE | ~2023-11-19 | DEXA_ITS ---
Bone Density Report Name: KATHERINE VELASQUEZ Age: 62 Sex: Female Ethnicity: White Date of : 1960 Indication: postmenopausal; screening for osteoporosis; height loss; cancer; asthma or emphysema; hysterectomy; Referring Provider: EDMUNDO SHULTZ Study: Bone densitometry was performed. Exam Date: November 19, 2023 Accession number: [id number] Bone Density: Region BMD T-score Z-score Classification AP Spine(L1-L4) 0.824 -2.0 -0.3 Osteopenia Femoral Neck (Left) 0.518 -3.0 -1.5 Osteoporosis Total Hip (Left) 0.723 -1.8 -0.6 Osteopenia Femoral Neck (Right) 0.572 -2.5 -1.0 Osteoporosis Total Hip (Right) 0.719 -1.8 -0.7 Osteopenia Total Hip Mean 0.721 -1.8 -0.7 Osteopenia World Health Organization criteria for BMD impression classify patients as: Normal (T-score at or above -1.0), Osteopenia (T-score between -1.0 and -2.5), or Osteoporosis (T-score at or below -2.5). 10-year Fracture Risk: FRAX not reported because: Some T-score for Spine Total or Hip Total or Femoral Neck at or below -2.5 Clinical Information Provided by Patient: Has used the following medications: Vitamin D Has the following medical conditions: Asthma or Emphysema, Cancer, Hysterectomy Patient maximum height was 63 No regular weight bearing exercise Drinks caffeinated beverages Onset of menses at age 7 Number of children 2 Impression: The patient has osteoporosis, based on the Left Femoral Neck T-score. Discussion: INCREASED RISK OF FRACTURE. BONE DENSITY IS UNDESIRABLY LOW AT ONE OR MORE SKELETAL SITES, CONSISTENT WITH POSTMENOPAUSAL OSTEOPOROSIS. This patient's lowest T-score meets the World Health Organization's (WHO) criteria for osteoporosis at one or more sites (T-score -2.5 or below). In untreated patients, the risk of osteoporotic fracture increases approximately two-fold for each 1.0 SD decrease in T-score. Low bone density is not the only risk factor for fracture; also consider factors such as patient's age, frailty or poor health, risk of falling, risk of injury, previous osteoporotic fracture, family history of osteoporosis, cigarette smoking, low body weight, etc. Not everyone with low bone mineral density has osteoporosis; osteomalacia and other metabolic bone disorders should also be considered. Patients who have osteoporosis should be evaluated for specific diseases and conditions (secondary causes) that may cause or contribute to bone loss. The [place] [employer] (AACE) and National Osteoporosis Foundation (NOF) recommend pharmacologic intervention for all postmenopausal women whose T-score is in this range. The patient should follow a healthful lifestyle (good nutrition with adequate calcium and vitamin D, and appropriate weight-bearing exercise). Follow-Up: Consider a repeat BMD
== END 2023-11-19 13:56 | disposition home or self-care (01) ==
PROVIDERS: PCP Obstetrics & Gynecology Gynecology; Visit Provider Obstetrics & Gynecology Gynecology
DX: Z12.31 Encounter for screening mammogram for malignant neoplasm of breast (principal); M81.0 Age-related osteoporosis without current pathological fracture; Z78.0 Asymptomatic menopausal state; Z13.820 Encounter for screening for osteoporosis
CPT/HCPCS: 77063; 77067; 77080